=== PATIENT | male | born 1955 | race Caucasian/White ===

== ENCOUNTER 2019-05-24 11:22 | Inpatient (IN) | payer OTHER ==
[2019-05-24] MEDS ORDERED: Calcium Carbonate 500 MG ChewTAB PO PRN (14:04)
[2019-05-24] MEDS ORDERED: Ondansetron ODT 4 MG TAB PO PRN (14:04)
[2019-05-24] MEDS ORDERED: Acetaminophen 325 MG TAB PO PRN (14:04)
[2019-05-24] MEDS ORDERED: Senokot S 8.6-50 MG TAB PO PRN (14:04)
[2019-05-24] MEDS ORDERED: Ondansetron PF 4 MG/2 ML Vial IVP PRN (14:04)
[2019-05-24] MEDS ORDERED: Nitroglycerin 0.4 MG TAB (25 Tab Bottle) PO PRN (14:04)
--- NOTE | 2019-05-24 14:11 | HP ---
PRIMARY CARE: Dr. Justin Thompson at [facility] CHIEF COMPLAINT: Abnormal cardiac catheterization. PRIMARY WAIST PRESSER: Noam Soriano MD HISTORY OF PRESENT ILLNESS: The patient is a 63-year-old male, who presented to his primary care physician's office recently with exertional shortness of breath along with intermittent chest pressure. He was referred to Dr. Soriano. He underwent exercise stress nuclear imaging that showed moderate reversible defect of the anterior septal wall consistent with ischemia. His TID was 1.36. His echocardiogram showed ejection fraction 55% to 60% without any wall motion abnormality. He underwent cardiac catheterization earlier today at [facility] that was consistent with three-vessel disease. He was transferred to this facility for consideration for coronary artery bypass grafting. He denies any chest pain, palpitations, lightheadedness, dizziness, diaphoresis at this time. PAST MEDICAL HISTORY: Reviewed with the patient and none. PAST SURGICAL HISTORY: Reviewed with the patient and none. The patient underwent cardiac catheterization earlier today. ALLERGIES: NO KNOWN DRUG ALLERGIES. HOME MEDICATION: The patient does not take any home medications. He was started on aspirin along with metoprolol [address] Soriano earlier today. SOCIAL HISTORY: The patient currently lives at home with his family. He denies any smoking, alcohol, or drug use. FAMILY HISTORY: Positive for father with PA at the age of 67. REVIEW OF SYSTEMS: All other review of systems were reviewed and were found negative. PHYSICAL EXAMINATION: VITAL SIGNS: Temperature 98.5, pulse rate of 59, respiration of 18, blood pressure 121/62, O2 saturation 97% on room air. GENERAL: A 63-year-old male in no apparent distress. HEENT: Head, atraumatic and normocephalic. Sclerae anicteric. Moist mucous membranes. No oral lesion. NECK: Supple. No JVD. No carotid bruit. LUNGS: Clear to auscultation bilaterally. No wheezing, rales, or rhonchi. HEART: S1 and S2 present. Regular rate and rhythm. No rubs or gallops. ABDOMEN: Soft, nontender. Bowel sounds present. No guarding or rigidity. EXTREMITIES: No edema or calf tenderness. NEUROLOGIC: Grossly nonfocal moves all 4 extremities. PSYCHIATRY: Alert, awake, and oriented x3. SKIN: Warm and dry. LYMPH NODES: No palpable lymph nodes in the neck. PERIPHERAL VASCULAR: Radial pulses palpable bilaterally. The cardiac catheterization site looked okay. LABORATORY DATA: Fasting lipid profile showed triglyceride 64, cholesterol 172, HDL 50, LDL of 109. Hemoglobin A1c was 5.7. PT of 11.7, INR 1.1, PTT of 27.6. CBC showed WBC 6.8 with hemoglobin 14.7, hematocrit 44.5, platelet of 245. Chemistry showed sodium 140, potassium 4.1, chloride 104, bicarb 28, BUN 16, creatinine 1.0. EKG by my review showed sinus rhythm without significant ST-T wave changes. IMPRESSION: 1. Three-vessel coronary artery disease. 2. Exertional shortness of breath secondary to #1. 3. Abnormal stress test. 4. Chronic kidney disease stage 2. 5. Hyperlipidemia. PLAN: The patient will be monitored on the Telemetry unit. Cardiovascular will be consulted. We will continue aspirin with beta blockers. We will add statins. We will keep him n.p.o. past midnight. We will consult Cardiovascular team. The patient understands the above plan of care. Job ID: [id number]
[2019-05-24] MEDS ORDERED: Communication Order-Pharmacy FS ONE (17:09)
[2019-05-24] MEDS: Metoprolol Tartrate 25 MG TAB PO SCH (20:29)
[2019-05-24] MEDS ORDERED: Famotidine 20 MG TAB PO SCH (21:00)
[2019-05-24] MEDS ORDERED: Melatonin 3 MG TAB PO SCH (21:30)
[2019-05-25] MEDS: Metoprolol Tartrate 25 MG TAB PO SCH (05:45)
[2019-05-25] MEDS ORDERED: Albumin 5% 500 ML ONE (06:32)
[2019-05-25] MEDS ORDERED: Heparin 10,000 UNITS/1 ML VIAL 30,000 UNITS in Sodium Chloride 0.9% 1,000 ML FS SCH (06:45)
[2019-05-25] MEDS ORDERED: Fentanyl 250 MCG/5 ML VIAL ONE ×2 (06:49)
[2019-05-25] MEDS ORDERED: Midazolam HCl 5 mg/5 ml Vial ONE (06:49)
[2019-05-25] MEDS ORDERED: Dexmedetomidine 200 MCG/2 ML VIAL ONE (06:52)
[2019-05-25] MEDS ORDERED: Midazolam HCl 2 mg/2 ml Vial ONE (06:59)
[2019-05-25] MEDS ORDERED: PHENYLEPHRINE-NS 100 MCG/ML 10 ML SYRINGE ONE ×2 (08:36→11:40)
[2019-05-25] MEDS ORDERED: Insulin Regular 300 UNITS/3 ML VIAL ONE (08:57)
[2019-05-25] MEDS ORDERED: Nitroglycerin 50 MG/250 ML BOT 250 ML IVPB PRN (11:24)
[2019-05-25] MEDS ORDERED: Post-Op Insulin Drip Protocol IVPB ONE (11:24)
[2019-05-25] MEDS ORDERED: hydrALAZINE 20 MG/ML VIAL SLOW IVP PRN (11:24)
[2019-05-25] MEDS ORDERED: Mag-Al 1200 mg/1200 mg/30 ML UDCUP PO PRN (11:24)
[2019-05-25] MEDS ORDERED: Morphine 2 MG/ML SYRINGE SLOW IVP PRN (11:24)
[2019-05-25] MEDS ORDERED: Norepinephrine 8 MG/0.9% NS 250 ML IVPB PRN (11:24)
[2019-05-25] MEDS ORDERED: Acetaminophen 325 MG TAB PO PRN (11:24)
[2019-05-25] MEDS ORDERED: DOPamine 400 MG/D5W 250 ML 250 ML IVPB PRN (11:24)
[2019-05-25] MEDS ORDERED: Fentanyl 100 MCG/2 ML VIAL SLOW IVP PRN ×2 (11:24)
[2019-05-25] MEDS ORDERED: Hetastarch 6% 500 ML 500 ML IVPB PRN (11:24)
[2019-05-25] MEDS ORDERED: Bisacodyl 5 MG TAB PO PRN (11:24)
[2019-05-25] MEDS ORDERED: Ondansetron PF 4 MG/2 ML Vial IVP PRN (11:24)
[2019-05-25] MEDS ORDERED: Potassium Chloride 20 MEQ/100 ML PREMIX BAG IVPB PRN (11:24)
[2019-05-25] MEDS ORDERED: Guaifenesin DM 100-10/5 ML UDCUP PO PRN (11:24)
[2019-05-25] MEDS ORDERED: HYDROcodone/Acetaminophen 5/325 mg Tablet PO PRN (11:24)
[2019-05-25] MEDS ORDERED: Promethazine HCl 25 MG/ML VIAL IM PRN (11:24)
[2019-05-25] MEDS ORDERED: niCARdipine 25 MG in Sodium Chloride 0.9% 250 ML 250 ML IVPB PRN (11:24)
[2019-05-25] MEDS ORDERED: Bisacodyl 10 MG SUPP PR PRN (11:24)
[2019-05-25] MEDS ORDERED: Magnesium 2 GM/50 ML 2 GM in Premix Bag 1 BAG IVPB SCH (11:24)
[2019-05-25] MEDS ORDERED: Dextrose 5% in Water 1,000 ML IV PRN (11:38)
[2019-05-25] MEDS ORDERED: HUMULIN R 100 UNITS in Sodium Chloride 0.9% 100 ML IVPB SCH (11:38)
[2019-05-25] MEDS ORDERED: Insulin Regular 300 UNITS/3 ML VIAL SC PRN (11:38)
[2019-05-25] MEDS ORDERED: Dextrose 50% Abboject 50 ML SYRINGE SLOW IVP PRN (11:38)
[2019-05-25] MEDS ORDERED: Dexamethasone 20 MG/5 ML VIAL ONE (11:40)
[2019-05-25] MEDS ORDERED: Heparin 5,000 UNITS/ML VIAL ONE (11:40)
[2019-05-25] MEDS ORDERED: Sodium Bicarb 50 MEQ/50 ML Abboject 8.4% SYRINGE ONE (11:40)
[2019-05-25] MEDS ORDERED: Lidocaine 2% PF 5 ML VIAL ONE (11:40)
[2019-05-25] MEDS ORDERED: PROPOFOL 200 MG/20 ML VIAL ONE (11:40)
[2019-05-25] MEDS ORDERED: Protamine Sulfate 250 MG/25 ML VIAL ONE (11:40)
[2019-05-25] MEDS ORDERED: Calcium Chloride 1 GM/10 ML Abboject SYRINGE ONE (11:40)
[2019-05-25] MEDS ORDERED: Glycopyrrolate 0.2 MG/ML 5 ML SYRINGE ONE (11:40)
[2019-05-25] MEDS ORDERED: Aminocaproic Acid 5 GM/20 ML VIAL ONE (11:40)
[2019-05-25] MEDS ORDERED: Rocuronium Bromide 10 MG/ML (10ML VIAL) ONE (11:40)
[2019-05-25] MEDS ORDERED: Norepinephrine 4 MG/4 ML VIAL ONE (11:40)
[2019-05-25] MEDS ORDERED: Cardioplegic Soln 1,000 ML BAG ONE (11:40)
[2019-05-25] MEDS ORDERED: Papaverine 60 MG/2 ML VIAL ONE (11:40)
[2019-05-25] MEDS ORDERED: Potassium Chloride 60 MEQ/30 ML VIAL ONE (11:40)
[2019-05-25] MEDS ORDERED: Nitroglycerin 50 MG/250 ML BOT ONE (11:40)
[2019-05-25] MEDS ORDERED: Magnesium Sulfate 1 GM/2 ML VIAL ONE (11:40)
[2019-05-25] MEDS ORDERED: Lidocaine 1% PF 5 ML VIAL ONE (11:40)
[2019-05-25] MEDS ORDERED: Heparin 30,000 units/30 ml VIAL ONE (11:40)
[2019-05-25] MEDS ORDERED: EPHEDRINE 25 MG/5 ML SYRINGE ONE (11:40)
[2019-05-25] MEDS ORDERED: Thrombin 5000 UNITS/5 ML VIAL ONE (11:40)
[2019-05-25] MEDS ORDERED: Ondansetron PF 4 MG/2 ML Vial ONE (11:40)
--- NOTE | 2019-05-25 11:57 | RAD ---
Portable frontal chest radiograph: 05/25/2019 COMPARISON: None HISTORY: Open heart surgery FINDINGS: Supine imaging limits assessment for pneumothorax and pleural fluid. There is a right-sided vascular catheter with distal tip overlying the right atrium. Postoperative surgical drains overlie the mediastinum centrally and overlie the left upper lobe. Midline sternotomy wires are prese nt. No focal consolidation or alveolar edema. Mild pulmonary vascular congestion. IMPRESSION: Postoperative changes as described above.
[2019-05-25 11:58] LABS: Hemoglobin 13.6 g/dL (14.0-18.0); Mean Corpuscular HGB CONC 32.7 g/dL (32.0-36.0); Mean Platelet Volume 8.5 fL (7.4-10.4); Platelet Count 152 thou/uL (130-400); RBC Distribution Width 10.9 % (11.5-14.5); Red Blood Cell (RBC) Count 4.26 mill/uL (4.70-6.10); White Blood Cell (WBC) Count 22.6 thou/uL (4.8-10.8)
[2019-05-25 12:02] LABS: INR-International Normal Ratio 1.3; PTT 37.7 SEC (22.9-36.1); Prothrombin Time 16.1 SEC (12.0-14.7)
--- NOTE | 2019-05-25 12:02 | OP ---
DATE OF PROCEDURE: 05/25/2019 PREOPERATIVE DIAGNOSIS: Coronary disease. PROCEDURE PERFORMED: Coronary artery bypass graft x3, left internal mammary artery good flow to a 1.5 mm LAD just after a diagonal, saphenous vein graft to a 1.5 mm PDA with plaque visible throughout the length of this vessel, saphenous vein graft to an OM-2 prior to its bifurcation measuring about 1.5. LOGISTICS TEAM LEADER: Kirt. TRANSFUSION: None. DESCRIPTION OF PROCEDURE: After adequate anesthesia had been obtained, the patient was prepped and draped. A sternotomy incision was made by myself and Dr. Moralez did an endovascular vein harvest of the left greater saphenous vein. After opening the sternum, the left internal mammary artery was harvested. The patient was heparinized. The mammary divided distally and passed posterior to the thymus gland through a slit and the pericardium. After traction sutures were placed in the pericardium, the aorta and right atrium were cannulated. The heart was quite full, particularly the right side, which I could visualize. After institution of cardiopulmonary bypass, vessels were inspected and the aorta was crossclamped and a liter of cold [place] cardioplegic solution was given. Following this, the 3 distal anastomoses were completed passing on a 1.5 mm probe through the distal LAD prior to tying the suture line. Following this, partial occluding clamp was placed and 2 proximal anastomosis performed on the aortic root. Following completion of this, the proximal anastomosis were marked with a ring. A suture was required in the toe of the OM anastomosis. The patient was then weaned from cardiopulmonary bypass. Cannulas were removed and protamine was given systemically. After obtaining good hemostasis, the sternum was reapproximated over a mediastinal left pleural drain with #7 interrupted wires using vancomycin paste on the sternal edges, platelet rich blood and platelet poor plasma. Subcutaneous tissue and skin were closed in layers. Job ID: [id number]
[2019-05-25 12:22] LABS: Anion Gap 9 mmol/L (10-20); BUN (Urea Nitrogen) 13 mg/dL (8.4-25.7); Calc. Creatinine Clearance 122 mL/min (70-130); Calcium 7.8 mg/dL (7.8-10.44); Carbon Dioxide 23 mmol/L (23-31); Chloride 113 mmol/L (98-107); Estimated GFR-MDRD Greater than 90; Glucose 109 mg/dL (80-115); Potassium 4.2 mmol/L (3.5-5.1); Sodium 141 mmol/L (136-145)
[2019-05-25 12:23] LABS: Band 18 % (5-11); Eosinophils 1 % (0-10); Lymphocytes 6 % (21-51); MDiff Complete? YES; Metamyelocyte 1 % (0-0); Monocytes 4 % (0-10); Neutrophil 67 % (42-75); Ovalocytes SLIGHT = 2-5 cells (100X) (0-1/hpf); Platelet Morphology Comment Appears Adequate; Polychromasia SLIGHT = 2-3 cells (100X) (0-2/hpf); Reactive Lymphocytes 3 % (0-10); Tear Drops SLIGHT = 2-5 cells (100X) (0-1/hpf)
[2019-05-25] MEDS: Ketorolac Tromethamine 30 MG/ML VIAL IVP SCH ×3 (12:23→23:39)
[2019-05-25] MEDS: Lactated Ringer's 1,000 ML IV SCH (14:18)
[2019-05-25] MEDS: CEFAZOLIN 2 GM in Premix Bag 1 BAG IVPB SCH ×2 (14:19→21:59)
[2019-05-25] MEDS: HYDROcodone/Acetaminophen 5/325 mg Tablet PO PRN ×3 (14:39→23:34)
[2019-05-25 17:40] LABS: Potassium 4.4 mmol/L (3.5-5.1)
--- NOTE | 2019-05-25 19:11 | PDOC.HOSPP ---
- Subjective Encounter Date: 05/25/19 Encounter Time: 18:00 Subjective: Patient seen and examined for CAD. s/p CABG. No CP. No new complaints. No overnight events - Objective Vital Signs & Weight: Vital Signs (12 hours) Temp Pulse Ox 05/25/19 18:59 98 05/25/19 16:00 97.9 F 05/25/19 12:00 97.7 F Weight Weight 198 lb Most Recent Monitor Data Heart Rate from ECG 74 NIBP 84/51 NIBP BP-Mean 62 Respiration from ECG 24 SpO2 100 I&O: 05/24/19 05/25/19 05/26/19 06:59 06:59 06:59 Intake Total 480 595 Output Total 885 Balance 480 -290 Result Diagrams: 05/25/19 17:16 05/25/19 17:16 Additional Labs: Accuchecks 05/25/19 05/25/19 05/25/19 16:08 11:45 11:22 POC Glucose 122 H 102 97 05/25/19 05/25/19 10:34 10:05 POC Glucose 142 H 193 H EKG Reviewed by me: Yes (Tele SR) Hospitalist ROS - Review of Systems Respiratory: denies: cough, dry, shortness of breath, hemoptysis, SOB with excertion, pleuritic pain, sputum, wheezing, other Cardiovascular: denies: chest pain, palpitations, orthopnea, paroxysmal noc. dyspnea, edema, light headedness, other - Medication Medications: Active Medications Generic Name Dose Route Start Last Admin Trade Name Freq PRN Reason Stop Dose Admin Hydrocodone Bitart/Acetaminophen 2 tab 05/25/19 11:24 05/25/19 14:39 [place] 5/325 PO 2 tab Q4H PRN Administration Severe Pain (7-10) Cefazolin Sodium/Dextrose 2 gm 50 mls @ 100 mls/hr 05/25/19 14:00 05/25/19 14 :19 / Device IVPB 05/26/19 06:29 50 mls Q8HR WILNER Administration Lactated Ringer's 1,000 mls @ 75 mls/hr 05/25/19 13:15 05/25/19 14:18 Lactated Ringer's IV 1,000 mls .[id number] WILNER Administration Ketorolac Tromethamine 15 mg 05/25/19 12:00 05/25/19 16:53 Toradol IVP 05/28/19 12:01 15 mg Q6HR WILNER Administration - Exam General Appearance: NAD Heart: RRR, no rubs Respiratory: no rales, normal chest expansion Extremities: no cyanosis Neurological: no new deficit Psychiatric: normal affect, A&O x 3 Hosp A/P - Plan DVT proph w/SCDs 1. 3V CAD s/p CABG 05/24 2. POLLARD secondary to #1. 3. Abnormal stress test. 4. Chronic kidney disease stage 2. 5. Hyperlipidemia. PLAN: s/p CABG Cont Post CABG care AM labs Cont ASA Pain control
[2019-05-25] MEDS: Famotidine/PF 20 mg/2ml Vial SLOW IVP SCH (21:59)
[2019-05-26] MEDS: Lactated Ringer's 1,000 ML IV SCH (02:31)
[2019-05-26] MEDS: HYDROcodone/Acetaminophen 5/325 mg Tablet PO PRN ×3 (03:29→20:30)
[2019-05-26 04:38] LABS: #Lymphocytes 1.6 thou/uL (1.20-3.40); #Neutrophils 18.6 thou/uL (1.40-6.50); %Basophils 0.1 % (0.0-1.0); %Monocytes 8.9 % (0.0-10.0); %Neutrophils 83.9 % (42.0-75.0); Hemoglobin 12.8 g/dL (14.0-18.0); Mean Corpuscular HGB CONC 32.9 g/dL (32.0-36.0); Mean Platelet Volume 9.4 fL (7.4-10.4); Platelet Count 170 thou/uL (130-400); RBC Distribution Width 10.8 % (11.5-14.5); White Blood Cell (WBC) Count 22.2 thou/uL (4.8-10.8)
[2019-05-26 04:56] LABS: Anion Gap 8 mmol/L (10-20); BUN (Urea Nitrogen) 15 mg/dL (8.4-25.7); Calc. Creatinine Clearance 119 mL/min (70-130); Carbon Dioxide 27 mmol/L (23-31); Chloride 106 mmol/L (98-107); Estimated GFR-MDRD Greater than 90; Glucose 126 mg/dL (80-115); Magnesium 2.1 mg/dL (1.6-2.6); Potassium 4.2 mmol/L (3.5-5.1); Sodium 137 mmol/L (136-145)
[2019-05-26] MEDS: CEFAZOLIN 2 GM in Premix Bag 1 BAG IVPB SCH (06:22)
[2019-05-26] MEDS: Ketorolac Tromethamine 30 MG/ML VIAL IVP SCH ×3 (06:22→17:43)
[2019-05-26 06:35] VITALS: BMI 29.8
[2019-05-26] MEDS: Famotidine/PF 20 mg/2ml Vial SLOW IVP SCH (08:33)
--- NOTE | 2019-05-26 08:43 | RAD ---
SINGLE VIEW CHEST: HISTORY: Status post open heart surgery. COMPARISON: 05/25/19 FINDINGS: A single view of the chest shows an enlarged cardiomediastinal silhouette. The patient is status post sternotomy. The central venous catheter and chest tubes are unchanged in position. There is no evide nce of consolidation, mass, pneumothorax or pleural effusion. IMPRESSION: Stable examination. POS: C
[2019-05-26] MEDS ORDERED: Aspirin 325 mg Enteric Coated Tablet PO SCH (09:00)
[2019-05-26] MEDS ORDERED: Aspirin 325 MG TAB PO SCH (09:00)
[2019-05-26] MEDS ORDERED: Nitroglycerin 0.4 MG TAB (25 Tab Bottle) SL PRN (10:35)
[2019-05-26] MEDS ORDERED: Ondansetron PF 4 MG/2 ML Vial IVP PRN (10:35)
[2019-05-26] MEDS ORDERED: Bisacodyl 5 MG TAB PO PRN (10:35)
[2019-05-26] MEDS ORDERED: Mag-Al 1200 mg/1200 mg/30 ML UDCUP PO PRN (10:35)
[2019-05-26] MEDS ORDERED: Guaifenesin DM 100-10/5 ML UDCUP PO PRN (10:35)
[2019-05-26] MEDS ORDERED: Acetaminophen 325 MG TAB PO PRN (10:35)
[2019-05-26] MEDS ORDERED: Mineral Oil ENEMA PR PRN (10:35)
[2019-05-26] MEDS ORDERED: Bisacodyl 10 MG SUPP PR PRN (10:35)
[2019-05-26] MEDS ORDERED: Polyethylene Glycol 3350 17 GM Packet PO SCH (11:00)
[2019-05-26] MEDS ORDERED: Metoprolol Tartrate 25 MG TAB PO SCH (11:00)
--- NOTE | 2019-05-26 13:40 | PDOC.HOSPP ---
- Subjective Encounter Date: 05/26/19 Subjective: Doing very well. No significant amount of pain. Tolerating diet. Using IS. - Objective Vital Signs & Weight: Vital Signs (12 hours) Temp Pulse Resp BP Pulse Ox 05/26/19 12:00 99.0 F 82 18 122/58 L 96 05/26/19 10:35 98.3 F 84 18 134/63 96 05/26/19 07:32 99 05/26/19 07:04 96 05/26/19 07:00 97.6 F 05/26/19 04:00 98.1 F Weight Weight 202 lb Most Recent Monitor Data Heart Rate from ECG 80 NIBP 121/66 NIBP BP-Mean 84 Respiration from ECG 1 SpO2 95 I&O: 05/25/19 05/26/19 05/27/19 06:59 06:59 06:59 Intake Total 480 1812 400 Output Total 1645 650 Balance 480 167 -250 Result Diagrams: 05/26/19 03:50 05/26/19 03:50 Additional Labs: Accuchecks 05/26/19 05/26/19 05/25/19 04:21 00:32 20:09 POC Glucose 115 H 108 112 H 05/25/19 05/25/19 16:08 11:45 POC Glucose 122 H 102 Hospitalist ROS - Medication Medications: Active Medications Generic Name Dose Route Start Last Admin Trade Name Freq PRN Reason Stop Dose Admin Hydrocodone Bitart/Acetaminophen 2 tab 05/25/19 11:24 05/26/19 08:33 [place] 5/325 PO 2 tab Q4H PRN Administration Severe Pain (7-10) Ketorolac Tromethamine 15 mg 05/25/19 12:00 05/26/19 11:59 Toradol IVP 05/28/19 12:01 15 mg Q6HR WILNER Administration - Exam General Appearance: NAD, awake alert Heart: RRR, no murmur, no gallops, no rubs, normal peripheral pulses Respiratory: CTAB, no wheezes, no rales, no ronchi, normal chest expansion, no tachypnea, normal percussion Gastrointestinal: soft, non-tender, non-distended, normal bowel sounds, no palpable masses, no hepatomegaly, no splenomegaly, no bruit Extremities: no cyanosis, no clubbing, no edema Musculoskeletal: normal tone, normal strength, no muscle wasting Psychiatric: normal affect, normal behavior, A&O x 3 Hosp A/P (1) CAD (coronary artery disease) Code(s): I25.10 - ATHSCL HEART DISEASE OF [place] CORONARY ARTERY W/O ANG PCTRS Status: Acute (2) S/P CABG x 3 Code(s): Z95.1 - PRESENCE OF AORTOCORONARY BYPASS GRAFT Status: Acute (3) CKD (chronic kidney disease), stage II Code(s): N18.2 - CHRONIC KIDNEY DISEASE, STAGE 2 (MILD) Status: Acute (4) HLD (hyperlipidemia) Code(s): E78.5 - HYPERLIPIDEMIA, UNSPECIFIED Status: Acute - Plan Doing very well. BP and HR good on low dose beta john. Continue post-op care pre [facility]. Labs look good other than reactive leukocytosis. No new rec.
[2019-05-26] MEDS: Famotidine 20 MG TAB PO SCH (20:21)
[2019-05-26] MEDS: Zolpidem Tartrate 5 MG TAB PO PRN (20:21)
[2019-05-26] MEDS: Metoprolol Tartrate 25 MG TAB PO SCH (20:22)
[2019-05-26] MEDS: Atorvastatin Calcium 20 MG TAB PO SCH (20:22)
[2019-05-27] MEDS: Ketorolac Tromethamine 30 MG/ML VIAL IVP SCH ×3 (03:23→11:24)
[2019-05-27] MEDS: Metoprolol Tartrate 25 MG TAB PO SCH ×2 (08:32→20:14)
[2019-05-27] MEDS: Famotidine 20 MG TAB PO SCH ×2 (08:32→20:14)
[2019-05-27] MEDS: Aspirin 325 mg Enteric Coated Tablet PO SCH (08:32)
[2019-05-27] MEDS: Potassium Chloride 10 MEQ TAB PO SCH (08:33)
[2019-05-27] MEDS: Polyethylene Glycol 3350 17 GM Packet PO SCH (08:33)
[2019-05-27] MEDS: Furosemide 40 MG TAB PO SCH (08:33)
[2019-05-27 10:34] LABS: #Lymphocytes 1.7 thou/uL (1.20-3.40); #Monocytes 1.8 thou/uL (0.11-0.59); #Neutrophils 16.4 thou/uL (1.40-6.50); %Basophils 0.1 % (0.0-1.0); %Eosinophils 0.1 % (0.0-10.0); %Lymphocytes 8.5 % (21.0-51.0); %Monocytes 8.9 % (0.0-10.0); %Neutrophils 82.4 % (42.0-75.0); Hemoglobin 12.7 g/dL (14.0-18.0); Mean Corpuscular Volume 97.3 fL (78.0-98.0); Mean Platelet Volume 9.4 fL (7.4-10.4); Platelet Count 175 thou/uL (130-400); RBC Distribution Width 10.8 % (11.5-14.5); Red Blood Cell (RBC) Count 3.85 mill/uL (4.70-6.10)
[2019-05-27 10:47] LABS: Anion Gap 10 mmol/L (10-20); BUN (Urea Nitrogen) 18 mg/dL (8.4-25.7); Calc. Creatinine Clearance 99 mL/min (70-130); Calcium 8.4 mg/dL (7.8-10.44); Carbon Dioxide 28 mmol/L (23-31); Chloride 100 mmol/L (98-107); Estimated GFR-MDRD 74; Glucose 165 mg/dL (80-115); Potassium 3.9 mmol/L (3.5-5.1); Sodium 134 mmol/L (136-145)
--- NOTE | 2019-05-27 14:04 | PDOC.HOSPP ---
- Subjective Encounter Date: 05/27/19 Subjective: Doing ok. Still has some pain in the chest. Had drains removed today. Said Toradol worked well. Hydrocodone did not. - Objective Vital Signs & Weight: Vital Signs (12 hours) Temp Pulse Pulse Pulse Resp BP BP 05/27/19 11:17 98.7 F 87 12 05/27/19 08:28 99.5 F 89 14 05/27/19 07:57 85 90 106/59 L 120/58 L 05/27/19 03:07 99.5 F 88 18 BP Pulse Ox 05/27/19 11:17 103/65 96 05/27/19 08:28 124/58 L 97 05/27/19 07:57 05/27/19 03:07 118/56 L 93 L Weight Weight 208 lb 14.4 oz Most Recent Monitor Data Heart Rate from ECG 80 NIBP 121/66 NIBP BP-Mean 84 Respiration from ECG 1 SpO2 95 I&O: 05/26/19 05/27/19 05/28/19 06:59 06:59 06:59 Intake Total 1812 2110 Output Total 1645 1750 Balance 167 360 Result Diagrams: 05/27/19 10:25 05/27/19 10:25 Hospitalist ROS - Medication Medications: Active Medications Generic Name Dose Route Start Last Admin Trade Name Freq PRN Reason Stop Dose Admin Hydrocodone Bitart/Acetaminophen 2 tab 05/25/19 11:24 05/26/19 20:30 [place] 5/325 PO 2 tab Q4H PRN Administration Severe Pain (7-10) Al Hydroxide/Mg Hydroxide 30 ml 05/26/19 10:35 05/26/19 22:04 Maalox PO 30 ml Q4H PRN Administration Indigestion Aspirin 325 mg 05/27/19 09:00 05/27/19 08:32 Ecotrin PO 325 mg DAILY WILNER Administration Atorvastatin Calcium 20 mg 05/26/19 21:00 05/26/19 20:22 Lipitor PO 20 mg HS WILNER Administration Famotidine 20 mg 05/26/19 21:00 05/27/19 08:32 Pepcid PO 20 mg BID WILNER Administration Furosemide 40 mg 05/27/19 09:00 05/27/19 08:33 Lasix PO 40 mg DAILY WILNER Administration Polyethylene Glycol 17 gm 05/27/19 09:00 05/27/19 08:33 Miralax PO 17 gm DAILY WILNER Administration Potassium Chloride 10 meq 05/27/19 08:00 05/27/19 08:33 Klor-Con 10 PO 10 meq QAM-WM WILNER Administration Zolpidem Tartrate 5 mg 05/26/19 10:35 05/26/19 20:21 Ambien PO 5 mg HSPRN PRN Administration Insomnia - Exam General Appearance: NAD, awake alert Heart: RRR, no murmur, no gallops, no rubs, normal peripheral pulses Heart - other findings: Sternal wound looks good. Respiratory: CTAB, no wheezes, no rales, no ronchi, normal chest expansion, no tachypnea, normal percussion Gastrointestinal: soft, non-tender, non-distended, normal bowel sounds, no palpable masses, no hepatomegaly, no splenomegaly, no bruit Extremities: no cyanosis, no clubbing, no edema Musculoskeletal: normal tone Psychiatric: normal affect, normal behavior Hosp A/P (1) CAD (coronary artery disease) Code(s): I25.10 - ATHSCL HEART DISEASE OF [place] CORONARY ARTERY W/O ANG PCTRS Status: Acute (2) S/P CABG x 3 Code(s): Z95.1 - PRESENCE OF AORTOCORONARY BYPASS GRAFT Status: Acute (3) CKD (chronic kidney disease), stage II Code(s): N18.2 - CHRONIC KIDNEY DISEASE, STAGE 2 (MILD) Status: Acute (4) HLD (hyperlipidemia) Code(s): E78.5 - HYPERLIPIDEMIA, UNSPECIFIED Status: Acute - Plan Doing very well. BP and HR good BB increased. Continue post-op care pre [facility]. Labs look good other than reactive leukocytosis. Will continue the Toradol 30 another 24 hours. Renal function looks good. Continue pepcid.
[2019-05-27] MEDS: Ketorolac Tromethamine 30 MG/ML VIAL IVP PRN (17:38)
[2019-05-27] MEDS: Atorvastatin Calcium 20 MG TAB PO SCH (20:14)
[2019-05-28] MEDS: Ketorolac Tromethamine 30 MG/ML VIAL IVP PRN (00:17)
[2019-05-28] MEDS: Zolpidem Tartrate 5 MG TAB PO PRN ×2 (00:17→22:02)
[2019-05-28] MEDS: Furosemide 40 MG TAB PO SCH (08:34)
[2019-05-28] MEDS: Famotidine 20 MG TAB PO SCH ×2 (08:34→20:32)
[2019-05-28] MEDS: Potassium Chloride 10 MEQ TAB PO SCH (08:34)
[2019-05-28] MEDS: Polyethylene Glycol 3350 17 GM Packet PO SCH (08:34)
[2019-05-28] MEDS: Aspirin 325 mg Enteric Coated Tablet PO SCH (08:34)
[2019-05-28] MEDS: Metoprolol Tartrate 25 MG TAB PO SCH (08:34)
[2019-05-28] MEDS ORDERED: Metoprolol Tartrate 25 MG TAB PO SCH (11:15)
[2019-05-28] MEDS: Metoprolol Tartrate 50 MG TAB PO SCH (20:32)
[2019-05-28] MEDS: Atorvastatin Calcium 20 MG TAB PO SCH (20:32)
[2019-05-28] MEDS ORDERED: Ketorolac Tromethamine 30 MG/ML VIAL IVP SCH (21:15)
[2019-05-29 08:30] VITALS: BP 131/71; TEMP 97.7
[2019-05-29] MEDS: Metoprolol Tartrate 50 MG TAB PO SCH (08:31)
[2019-05-29] MEDS: Furosemide 40 MG TAB PO SCH (08:31)
[2019-05-29] MEDS: Aspirin 325 mg Enteric Coated Tablet PO SCH (08:31)
[2019-05-29] MEDS: Potassium Chloride 10 MEQ TAB PO SCH (08:31)
[2019-05-29] MEDS: Famotidine 20 MG TAB PO SCH (08:31)
[2019-05-29] MEDS: Polyethylene Glycol 3350 17 GM Packet PO SCH (08:32)
[2019-05-29] MEDS ORDERED: Fluticasone Propionate Nasal Spray 16 gm Bottle NASAL SCH (09:00)
--- NOTE | 2019-05-31 07:36 | EKG ---
Test Reason : POST CABG Blood Pressure : / mmHG Vent. Rate : 066 BPM Atrial Rate : 066 BPM P-R Int : 166 ms QRS Dur : 094 ms QT Int : 416 ms P-R-T Axes : 052 060 042 degrees QTc Int : 436 ms Normal sinus rhythm Normal ECG No previous ECGs available Confirmed by KELVIN FERNANDEZ MD ([id number]) on 05/31/2019 7:35:58 AM Referred By: MARTA Confirmed By:KELVIN FERNANDEZ MD
[2019-06-01 14:22] LABS: Actual Bicarbonate (HCO3a) 21.9 mEq/L (22-28); Analyzer IN Cardio OR; Base Excess (BEa) -4.3 mEq/L (-2.0 to +3.0); CO2 Tension 44.4 mmHg (35.0-45.0); Calcium, Ionized 1.19 mmol/L (1.12-1.30); Carboxyhemoglobin (COHb) 0.7 gm% (0.0-3.0); Hemoglobin (Hb) 13.4 g/dL (14.0-18.0); O2 Tension (PaO2) 460.9 mmHg (> 80.0); Potassium - ABG Lab 4.11 mmol/L (3.70-5.30); pH, Arterial 7.31 (7.35-7.45)
[2019-06-01 14:22] LABS: Actual Bicarbonate (HCO3a) 22.8 mEq/L (22-28); Analyzer IN Cardio OR; Base Excess (BEa) -1.5 mEq/L (-2.0 to +3.0); CO2 Tension 36.7 mmHg (35.0-45.0); Calcium, Ionized 1.26 mmol/L (1.12-1.30); Carboxyhemoglobin (COHb) 0.3 gm% (0.0-3.0); Hemoglobin (Hb) 10.6 g/dL (14.0-18.0); Potassium - ABG Lab 4.04 mmol/L (3.70-5.30); pH, Arterial 7.41 (7.35-7.45)
[2019-06-01 14:23] LABS: Actual Bicarbonate (HCO3a) 23.3 mEq/L (22-28); Analyzer IN Cardio OR; Base Excess (BEa) -0.3 mEq/L (-2.0 to +3.0); CO2 Tension 34.6 mmHg (35.0-45.0); Calcium, Ionized 1.03 mmol/L (1.12-1.30); Carboxyhemoglobin (COHb) 0.2 gm% (0.0-3.0); Hemoglobin (Hb) 11.2 g/dL (14.0-18.0); O2 Tension (PaO2) 430.7 mmHg (> 80.0); pH, Arterial 7.45 (7.35-7.45)
[2019-06-01 14:23] LABS: Actual Bicarbonate (HCO3a) 21.9 mEq/L (22-28); Analyzer IN Cardio OR; Calcium, Ionized 1.12 mmol/L (1.12-1.30); Hemoglobin (Hb) 13.8 g/dL (14.0-18.0); Potassium - ABG Lab 4.39 mmol/L (3.70-5.30); pH, Arterial 7.41 (7.35-7.45)
[2019-06-01 14:23] LABS: Actual Bicarbonate (HCO3v) 23 mEq/L (22-28); Analyzer IN Cardio OR; Base Excess -2.5 mEq/L (-2.0 to +3.0); Calcium, Ionized 1.03 mmol/L (1.16-1.32); Chloride (ABG LAB) 108 mmol/L (98-106); Hemoglobin (Hb) 10.6 g/dL (13.1-17.2); Sodium 135.8 mmol/L (133-146); pH (venous) 7.34 (7.32-7.43)
[2019-06-01 14:23] LABS: Actual Bicarbonate (HCO3a) 22.1 mEq/L (22-28); Analyzer IN Cardio OR; Base Excess (BEa) -2.9 mEq/L (-2.0 to +3.0); CO2 Tension 39.5 mmHg (35.0-45.0); Calcium, Ionized 1.06 mmol/L (1.12-1.30); Carboxyhemoglobin (COHb) 0.3 gm% (0.0-3.0); Hemoglobin (Hb) 10.7 g/dL (14.0-18.0); Potassium - ABG Lab 4.99 mmol/L (3.70-5.30); pH, Arterial 7.37 (7.35-7.45)
[2019-06-01 14:24] LABS: Actual Bicarbonate (HCO3a) 23.4 mEq/L (22-28); Analyzer IN Cardio OR; Base Excess (BEa) -0.8 mEq/L (-2.0 to +3.0); Calcium, Ionized 1.14 mmol/L (1.12-1.30); Carboxyhemoglobin (COHb) 0.7 gm% (0.0-3.0); Hemoglobin (Hb) 14.1 g/dL (14.0-18.0); O2 Tension (PaO2) 397.1 mmHg (> 80.0); Potassium - ABG Lab 3.74 mmol/L (3.70-5.30); Puncture Site ALINE; pH, Arterial 7.42 (7.35-7.45)
[2019-06-01 14:25] LABS: O2 Tension (PaO2) 554.8 mmHg (> 80.0); Puncture Site ALINE
[2019-06-01 14:26] LABS: Puncture Site ALINE
[2019-06-01 14:26] LABS: Puncture Site ALINE
[2019-06-01 14:27] LABS: O2 Tension (PaO2) 517.7 mmHg (> 80.0); Puncture Site ALINE
[2019-06-01 14:28] LABS: Puncture Site ALINE
== END 2019-05-29 11:40 | disposition home or self-care (01) | DRG 236 ==
LOC: 2NO 11:22 → CCU 05-25 06:13 → 2NO 05-26 09:40
PROVIDERS: ADMIT Family Medicine; ATTEND Family Medicine
PROC: 021109W Bypass Coronary Artery, Two Arteries from Aorta with Autologous Venous Tissue, Open Approach (ICD-10-PCS; principal; 2019-05-25)
PROC: 02100Z9 Bypass Coronary Artery, One Artery from Left Internal Mammary, Open Approach (ICD-10-PCS; 2019-05-25)
PROC: 06BQ4ZZ Excision of Left Saphenous Vein, Percutaneous Endoscopic Approach (ICD-10-PCS; 2019-05-25)
PROC: 5A1221Z Performance of Cardiac Output, Continuous (ICD-10-PCS; 2019-05-25)
DX: I25.10 Atherosclerotic heart disease of native coronary artery without angina pectoris (principal); N18.2 Chronic kidney disease, stage 2 (mild); E78.5 Hyperlipidemia, unspecified; R94.39 Abnormal result of other cardiovascular function study
CPT/HCPCS: 36415; 36416; 36430; 71045; 80048; 83735; 85025; 85610; 85730; 86850; 86900; 86901; 93005; 93010; 93798; 94760; J0690; J1100; J1642; J1644; J1815; J1885; J2001; J2250; J2405; J2440; J2704; J2720; J3010; J3370; J3475; J3480; P9016; P9045; S0017; S0028

== ENCOUNTER 2019-12-19 10:13 | Outpatient (CLI) | payer MEDICARE, OTHER | END 2019-12-19 10:14 | disposition home or self-care (01) | LOC: CTENTCT 10:13 | PROVIDERS: ATTEND Student in an Organized Health Care Education/Training Program | DX: J32.9 Chronic sinusitis, unspecified (principal) | CPT/HCPCS: 70486 ==